=== PATIENT | male | born 1980 | race Caucasian/White ===

== ENCOUNTER 2022-04-01 11:44 | Observation (INO) ==
[2022-04-01] MEDS ORDERED: SODIUM CHLORIDE 0.9% 1000ML 1,000 ML IV ONE (13:14)
--- NOTE | 2022-04-01 13:21 | Emergency Department Note ---
Impression & Plan Syncope and collapse, Exertional chest pain, CRUZ (dyspnea on exertion), Abnormal cardiovascular stress test, COVID-19 ED Provider Note Name: ANN MAZARIEGOS Age: 41 Sex: M Arrives Via: Ambulance Informant: Patient, , chart ED Provider: Manuel Shah MD Chief Complaint: Syncope Impression: As Per Impressions Above Medical Decision Makin yr old male without significant PMH though likely chronic HTN arrives from Cardiology office after syncopal event while there. Does sound somewhat vagal in nature given they were talking about having cath done. However, patient just recently failed a stress test and given syncope further monitoring in hospital very much seems reasonable. Patient did have CT head which is negative. Dimer is wnl and thus CTA not indicated for PE and symptoms not consistent with dissection. No neuro deficits to suspect stroke at this time. Neuro intact. Covid is positive though no clear covid symptoms other than his feeling tired/sob for time, but he was just in large gathering so possibly early. He is not septic and is not having any active chest pain at this time. Hospitalist consulted for further management. Prior Medical Record and Triage/Nursing Notes reviewed by Me Differentials:Vasovagal event, dehydration, infection, hypoglycemia, electrolyte abnormalities, cardiac sources, intracerebral event, pulmonary embolism, seizure, toxicologic, neurologic, as well as other pathologies. Vital Signs: reviewed and remarkable for HTN Interventions: NSS bolus Labs:Reviewed and remarkable for no significant abnormalities Imaging:ct head no acute findings. cxr no acute findings. As per Rads EKG:Per My Interpretation: Indication syncope: SB 58 bpm, qtc 439. No Ectopy. No Ischemia. Compared to EKG 12/10/17, no significant changes. Cardiac/Tele Monitoring: Cardiac Monitoring: An Order was placed for continuous cardiac monitoring. The monitor shows a rate of 60 with a normal sinus rhythm. Consults:Dr Bhatt Plan: Disposition:Hospitalization. Condition: Good History of Present Illness:41-year-old gentleman arrives for evaluation of syncope. Patient notes that he has been dealing with shortness of breath over the last few months. Is worse with exertion. He states it is gradually been worsening as well. Over the last few weeks he gets to the point where he is having tight chest pain. He had a stress test done a few weeks ago which apparently he did not reach his target heart rate. He was being seen by cardiology today. They are discussing possibly doing a stress test with echo versus cardiac catheterization. Patient notes he started getting lightheaded nauseous apparently threw up and then passed out. He was unconscious for about a minute. When he came to he was sweaty and confused but rapidly returned to his he was sent to the ER for further evaluation. No medications prior to a rrival. Patient notes that when he does have the shortness of breath episodes if he sits down he feels better. Any exertion does make it worse. He is on no daily medications. He has no history of PE or DVT and denies any calf or leg swelling. No family history of DVT PE. ROS: See above HPI for pertinent positives & negatives. A total of 10 systems reviewed and were otherwise negative. Past Medical History:none Past Surgical History:appendix Family History:htn Social History:no smoking, no drugs, occasional etoh, , works for [employer]. Home Medications:none Allergies:sulfa Vitals:Blood Pressure: 170/97, Pulse 67, RR 20, T 36.4C, O2 95% on RA Physical Exam: GENERAL: Patient is uncomfortable appearing and in mild distress. EYES: No scleral icterus, unremarkable pupils. ENT: Mucous membranes dry, no nasal congestion. NECK: No masses appreciated, nomeningismus, trachea is midline. RESPIRATORY: No dyspnea. Clear to auscultation and equal bilaterally. No wheeze, no rhonchi. CARDIOVASCULAR: Regular rate and rhythm.No murmurs, rubs, gallops appreciated. GASTROINTESTINAL: Abdomen soft, non-tender, no peritonitis.Bowel sounds positive.No masses appreciated. BACK: No midline tenderness, no CVA tenderness EXTREMITIES: Normal motion all extremities, no cyanosis, no edema. NEUROLOGIC: Alert and oriented, no acute motor or sensory deficits, no focal weakness, cranial nerves grossly intact. SKIN: No rash, no jaundice, no diaphoresis. PSYCH: Appropriate GCS: 15 ED Course: Times/Reassessments: stable, no distress, agreeable to hospitalization Manuel Shah MD Past Med/Surg History Medical History (Updated 04/02/22 @ 17:35 by Byron Zheng DO) Abnormal cardiovascular stress test COVID-19 Surgical History (Updated 04/01/22 @ 14:51 by Brittany Aranda PA-C) No significant past surgical history Family History (Updated 04/01/22 @ 14:28 by Brittany Aranda PA-C) Grandfather (Maternal) Coronary heart disease Grandfather (Paternal) Coronary heart disease Social History Smoking Status: Never smoker Hx Substance Use: No Preferred Language: Zimbabwean Communication Ability: Effective Sewer Required: No Beliefs That Will Affect Care: None Current Living Situation: Family Feels Safe at Home: Yes Assistive Devices: None Allergies Allergies Allergy/AdvReac Type Severity Reaction Status Date / Time Sulfa (Sulfonamide Allergy Unknown UNKNOWN Verified 04/01/22 10:48 Antibiotics) Home Meds Home Medications Medication Instructions Recorded Confirmed acetaminophen 500 mg tablet 100 mg PO Q6H PRN Fever Or Pain 04/01/22 04/01/22 (Tylenol Extra Strength) benzonatate 100 mg capsule 100 mg PO TID PRN Cough 04/01/22 04/01/22 fluticasone propionate 50 1 spray intranasal BID PRN Nasal 04/01/22 04/01/22 mcg/actuation nasal Congestion spray,suspension Previous Rx's Medication Instructions Recorded amlodipine 5 mg tablet (Norvasc) 5 mg PO QAM #30 tabs 04/02/22 aspirin 81 mg tablet,delayed 81 mg PO QAM #30 tabs 04/02/22 release atorvastatin 40 mg tablet 40 mg PO QAM #30 tabs 04/02/22 nitroglycerin 0.4 mg sublingual 0.4 mg sublingual Q5M PRN chest 04/02/22 tablet pain #30 tabs Results & Data (ED) Vital Signs Vital Signs - 24 hr 04/01/22 11:49 04/01/22 12:04 Temperature 36.4 C L Temperature Source Oral Pulse Rate 67 Respiratory Rate 20 Respiratory Effort / Characteristics Non-Labored Respiratory Depth Normal Blood Pressure 170/97 H Blood Pressure Mean 121 Pulse Oximetry 95 Oxygen Delivery Method Room Air Room Air Sepsis Recent Fever Within 48 Hours No Sepsis New/Unexplained Change in Mental Status No Sepsis Action Taken by Nursing No Action Required Laboratory Data Result diagrams: 04/01/22 12:03 04/01/22 12:03 Lab Results 04/01/22 04/01/22 04/01/22 Range/Units 12:03 12:03 12:03 WBC 6.30 (4.8-10.8) K/ul RBC 5.27 (4.63-6.08) M/uL Hgb 16.4 (14.0-18.0) g/dl Hct 45.6 (40.1-51.0) % MCV 86.5 (80.0-100.0) fL MCH 31.1 (25.0-34.0) pg MCHC 36.0 (32.0-36.0) g/dL RDW Std Deviation 37.5 (36.4-46.3) fL RDW Coeff of Rigoberto 11.9 (11.5-14.5) % Plt Count 242 (130-400) K/uL MPV 9.5 (9.4-12.4) fL Immature Gran % (Auto) 1.0 % Neut % (Auto) 48.5 % Lymph % (Auto) 40.6 % [place] % (Auto) 6.7 % Eos % (Auto) 2.7 % Baso % (Auto) 0.5 % Neut # (Auto) 3.06 (1.4-6.5) K/uL Lymph # (Auto) 2.56 (1.2-3.4) K/uL [place] # (Auto) 0.42 (0.24-0.82) K/uL Eos # (Auto) 0.17 (0-0.50) K/uL Baso # (Auto) 0.03 (0-0.2) K/uL Immature Gran # (Auto) 0.06 H (0.00-0.02) K/uL PT 11.3 (9.0-12.0) Seconds INR 1.1 (0.9-1.1) D-Dimer 280 (0-500) ug/L FEU Sodium 140 (136-145) mmol/L Potassium 3.8 (3.5-5.1) mmol/L Chloride 105 (98-107) mmol/L Carbon Dioxide 29 (21-32) mmol/L Anion Gap 6 (3-11) BUN 21 (6-23) mg/dl Creatinine 0.99 (0.6-1.4) mg/dl Est Cr Clr Drug Dosing Not Reportable Est GFR ( Amer) 110.0 ml/min Est GFR (Non-Af Amer) 94.9 ml/min BUN/Creatinine Ratio 21.2 H (10-20) Glucose 112 H (70-99(Fasting)) mg/dl Calcium 9.5 (8.5-10.1) mg/dl Magnesium 2.2 (1.7-2.4) mg/dl Total Bilirubin 2.3 H (0.2-1.0) mg/dl Direct Bilirubin 0.2 (0-0.2) mg/dl AST 18 (13-39) U/L ALT 32 (7-52) U/L Alkaline Phosphatase 92 (34-104) U/L Troponin I High Sens 2.6 (0-20) pg/ml Total Protein 7.5 (6.0-8.3) gm/dl Albumin 4.6 (3.4-5.0) gm/dl Lipase 19 (11-82) U/L SARS-CoV-2, RNA, NAAT (NEGATIVE) 04/01/22 Range/Units 13:29 WBC (4.8-10.8) K/ul RBC (4.63-6.08) M/uL Hgb (14.0-18.0) g/dl Hct (40.1-51.0) % MCV (80.0-100.0) fL MCH (25.0-34.0) pg MCHC (32.0-36.0) g/dL RDW Std Deviation (36.4-46.3) fL RDW Coeff of Rigoberto (11.5-14.5) % Plt Count (130-400) K/uL MPV (9.4-12.4) fL Immature Gran % (Auto) % Neut % (Auto) % Lymph % (Auto) % [place] % (Auto) % Eos % (Auto) % Baso % (Auto) % Neut # (Auto) (1.4-6.5) K/uL Lymph # (Auto) (1.2-3.4) K/uL [place] # (Auto) (0.24-0.82) K/uL Eos # (Auto) (0-0.50) K/uL Baso # (Auto) (0-0.2) K/uL Immature Gran # (Auto) (0.00-0.02) K/uL PT (9.0-12.0) Seconds INR (0.9-1.1) D-Dimer (0-500) ug/L FEU Sodium (136-145) mmol/L Potassium (3.5-5.1) mmol/L Chloride (98-107) mmol/L Carbon Dioxide (21-32) mmol/L Anion Gap (3-11) BUN (6-23) mg/dl Creatinine (0.6-1.4) mg/dl Est Cr Clr Drug Dosing Est GFR ( Amer) ml/min Est GFR (Non-Af Amer) ml/min BUN/Creatinine Ratio (10-20) Glucose (70-99(Fasting)) mg/dl Calcium (8.5-10.1) mg/dl Magnesium (1.7-2.4) mg/dl Total Bilirubin (0.2-1.0) mg/dl Direct Bilirubin (0-0.2) mg/dl AST (13-39) U/L ALT (7-52) U/L Alkaline Phosphatase (34-104) U/L Troponin I High Sens (0-20) pg/ml Total Protein (6.0-8.3) gm/dl Albumin (3.4-5.0) gm/dl Lipase (11-82) U/L SARS-CoV-2, RNA, NAAT POSITIVE A* (NEGATIVE) Administered Medications Discontinued Medications Atropine Sulfate (Atropine Sulfate 0.1 Mg/Ml 10ml Syr) Confirm Administered Dose 1 mg IV .STK-MED ONE Stop: 04/02/22 11:50 Last Admin: 04/02/22 18:30 Dose: Not Given Documented By: ANGEL Fentanyl Citrate (Fentanyl Citrate 100 Mcg/2 Ml Vial) Confirm Administered Dose 100 mcg .ROUTE .STK-MED ONE Stop: 04/02/22 11:10 Last Increment: 04/02/22 12:00 Dose: 75 mcg Documented By: SARI Heparin Sodium (Porcine) (Heparin (Porcine) 1000 Unit/Ml 10 Ml (Chief Resource Officer Use Only)) Confirm Administered Dose 10,000 units .ROUTE .STK-MED ONE Stop: 04/02/22 11:10 Last Admin: 04/02/22 12:28 Dose: 5,000 units Documented By: SARI Heparin Sodium/Sodium Chloride (Heparin In Nss Infusion 1000 Unit/500 Ml (2 U/Ml) Bag) Confirm Administered Dose 3,000 units IV .STK-MED ONE Stop: 04/02/22 11:10 Last Admin: 04/02/22 12:29 Dose: 3,000 units Documented By: FREDIS Sodium Chloride (Nss 1000ml) 1,000 mls @ 999 mls/hr IV .Q1H1M ONE Stop: 04/01/22 14:14 Last Infusion: 04/01/22 14:40 Dose: 0 mls/hr Documented By: Admin: 04/01/22 13:30 Dose: 999 mls/hr Documented By: ANTONIO Sodium Chloride (Nss 1000ml) 1,000 mls @ 100 mls/hr IV .Q10H DIOGENES Stop: 04/02/22 17:44 Last Infusion: 04/02/22 17:45 Dose: 0 mls/hr Documented By: Admin: 04/02/22 12:45 Dose: 100 mls/hr Documented By: ANGEL Midazolam HCl (Midazolam Hcl 1 Mg/Ml 2ml Vial) Confirm Administered Dose 2 mg .ROUTE .STK-MED ONE Stop: 04/02/22 11:10 Last Admin: 04/02/22 12:00 Dose: 2 mg Documented By: FRAN Nicardipine HCl (Nicardipine Hcl Inj 2.5 Mg/Ml 10 Ml Amp) Confirm Administered Dose 25 mg .ROUTE .STK-MED ONE Stop: 04/02/22 11:10 Last Admin: 04/02/22 12:29 Dose: 25 mg Documented By: FREDIS Nitroglycerin/Dextrose (Nitroglycerin/D5w 100mcg/Ml 20ml Syr) Confirm Administered Dose 2,000 mcg .ROUTE .STK-MED ONE Stop: 04/02/22 11:11 Last Admin: 04/02/22 12:30 Dose: 2,000 mcg Documented By: FREDIS Imaging Data Radiologist's Impression: Chest X-Ray 04/01/22 13:15 XR chest 1V portable HISTORY: syncope COMPARISON: Chest 12/10/2017. FINDINGS: The lungs are clear. Cardiac silhouette is normal in size. No pleural effusions. No pneumothorax. IMPRESSION: No acute process. ACT 112: Negative or not required by law. Electronically signed by: Howard Jacobo M.D. 04/01/2022 1:42 PM Discharge Plan Visit Data Chief Complaint: Syncope Stated Complaint: SYNCOPE ED Provider: Manuel Shah Discharge Problem: Syncope and collapse, Exertional chest pain, CRUZ (dyspnea on exertion), Abnormal cardiovascular stress test, COVID-19 Patient Disposition: Admitted As Inpatient Discharge Instructions Interventions: ED Discharge Assessment Last Done: 04/01/22 16:55
[2022-04-01 13:37] LABS: Basophils # (auto) 0.03 K/uL (0-0.2); Basophils % (auto) 0.5 %; Eosinophils # (auto) 0.17 K/uL (0-0.50); Eosinophils % (auto) 2.7 %; Hematocrit (blood only) 45.6 % (40.1-51.0); Hemoglobin 16.4 g/dl (14.0-18.0); Immature Granulocytes # (auto) 0.06 K/uL (0.00-0.02); Lymphocytes # (auto) 2.56 K/uL (1.2-3.4); Lymphocytes % (auto) 40.6 %; Mean Corpuscular Hemoglobin 31.1 pg (25.0-34.0); Mean Corpuscular Volume 86.5 fL (80.0-100.0); Mean Platelet Volume 9.5 fL (9.4-12.4); Monocytes # (auto) 0.42 K/uL (0.24-0.82); Monocytes % (auto) 6.7 %; Neutrophils # (auto) 3.06 K/uL (1.4-6.5); Neutrophils % (auto) 48.5 %; Platelet Count 242 K/uL (130-400); RDW Coefficient of Variation 11.9 % (11.5-14.5); RDW Standard Deviation 37.5 fL (36.4-46.3); Red Blood Count 5.27 M/uL (4.63-6.08)
--- NOTE | 2022-04-01 13:43 | XRay Report ---
XR chest 1V portable HISTORY: syncope COMPARISON: Chest 12/10/2017. FINDINGS: The lungs are clear. Cardiac silhouette is normal in size. No pleural effusions. No pneumot horax. IMPRESSION: No acute process. ACT 112: Negative or not required by law. Electronically signed by: Howard Jacobo M.D. 04/01/2022 1:42 PM
[2022-04-01 13:44] LABS: D Dimer 280 ug/L FEU (0-500); INR 1.1 (0.9-1.1); Prothrombin Time 11.3 Seconds (9.0-12.0)
[2022-04-01 13:53] LABS: Troponin I High Sensitivity 2.6 pg/ml (0-20)
[2022-04-01 13:54] LABS: Alanine Aminotransferase 32 U/L (7-52); Albumin Level 4.6 gm/dl (3.4-5.0); Alkaline Phosphatase 92 U/L (34-104); Anion Gap 6 (3-11); Aspartate Aminotransferase 18 U/L (13-39); BUN Creatinine Ratio 21.2 (10-20); Bilirubin Direct 0.2 mg/dl (0-0.2); Bilirubin,Total 2.3 mg/dl (0.2-1.0); Blood Urea Nitrogen 21 mg/dl (6-23); Calcium 9.5 mg/dl (8.5-10.1); Carbon Dioxide 29 mmol/L (21-32); Chloride 105 mmol/L (98-107); Est GFR (Non-African American) 94.9 ml/min; Glucose 112 mg/dl (70-99(Fasting)); Lipase 19 U/L (11-82); Magnesium 2.2 mg/dl (1.7-2.4); Potassium 3.8 mmol/L (3.5-5.1); Sodium 140 mmol/L (136-145); Total Protein 7.5 gm/dl (6.0-8.3)
--- NOTE | 2022-04-01 14:15 | History & Physical Report ---
Date of Service April 01, 2022 Assessment & Plan (1) Syncope and collapse: Plan: - Most likely etiology is vasovagal response as patient has a well-known history of syncopal episodes secondary to medical procedures and hospitals. Today's event happened while discussing cardiac catheterization, and patient regained consciousness within several seconds and pressure and heart rate normalized quickly. The event was not proceeded by chest pain/tightness, back/jaw/arm pain, or dyspnea. - Initial labs and imaging in ED are reassuring there is no acute coronary event, as his troponin is 2.6, EKG with mild bradycardia, otherwise NSR. Vital signs WNL. - We will trend the troponin, order an echo, and consult cardiology for possible cardiac catheter patient tomorrow. (2) COVID-19: Plan: - Patient has received vaccine series. He has been asymptomatic. Unknown contact source. No known exposures or sick contacts at home. - As his SpO2 > 92% on RA, he is not a candidate for remdesivir or steroids. - For now, supportive care. (3) Total bilirubin, elevated: Plan: - 2.3, remaining LFTs wnl, was previously elevated to this degree in 2018. - ? history fo Gilbert's disease. Plan - OBS on med/tele. - SCDs for VTE ppx. - Full Code. History of Present Illness Chief Complaint: syncope and collapse at cardiology appt today Primary Care Provider: Wesley Mcadams is a 41-year-old previously healthy male who presented to the ED today after syncopal event in his cardiology appointment. He has been experiencing exertional chest tightness and SOB for several months. He did have a cardiac stress test performed last month for this, which demonstrated good exercise tolerance, however he had difficulty achieving target heart rate and EKG did show changes suggestive of ischemia. He was at a cardiology appt today to disuss next steps. While discussing possible cardiac catheterization, he became pale, diaphoretic, and had a very weak pulse and ultimately passed out and vomited. After several seconds he regained consciousness. He is now without any complaints, is chest pain free and breathing comfortably without dyspnea. Without headache or pain at all. He has a history of vasovagal events surrounding medical procedures hospitals. On routine admission testing, patient tested positive for COVID-19. He has had his vaccinations. He denies any sick contacts. He has not felt that he has any symptoms. Allergies Allergy/AdvReac Type Severity Reaction Status Date / Time Sulfa (Sulfonamide Allergy Unknown UNKNOWN Verified 04/01/22 10:48 Antibiotics) Home Medications Medication Instructions Recorded Confirmed Type Acetaminophen (Tylenol) 1,000 mg PO Q6 PRN Pain #0 tabs 12/10/17 04/01/22 History Past Med/Surg History Medical History (Updated 04/01/22 @ 14:27 by Brittany Aranda PA-C) Abnormal cardiovascular stress test COVID-19 Surgical History (Updated 04/01/22 @ 14:51 by Brittany Aranda PA-C) No significant past surgical history Family History (Updated 04/01/22 @ 14:28 by Brittany Aranda PA-C) Grandfather (Maternal) Coronary heart disease Grandfather (Paternal) Coronary heart disease Social History Smoking Status: Never smoker Preferred Language: Syriac Feels Safe at Home: Yes Review of Systems Review of Systems: Constitutional: No fever/chills, weakness, fatigue, myalgias, anorexia, night sweats Eyes: No diplopia, no worsening or blurred vision ENT: normal hearing, no trouble swallowing Respiratory: No cough, sputum, dyspnea at rest or on exertion Cardiovascular: No chest pain, tightness or palpitations Abdomen: No pain, nausea, vomiting, diarrhea or constipation : Denies dysuria, hematuria, increased urgency/frequency, urinary retention Musculoskeletal: No joint pain, calf pain, swelling Neurologic: No weakness, numbness/tingling, or balance problems Psychiatric: No anxiety or depression Skin: No rash or itch Physical Exam Physical Exam: General: awake, alert, no apparent distress Head: Normocephalic, atraumatic ENT: PERRL, EOMI, no pharyngeal exudate, mucous membranes moist Chest: Clear to auscultation, on room air, no adventitious breath sounds Cardiac: Regular rate and rhythm, no murmur, no JVD, normal peripheral pulses, good capillary refill Abdominal: NABS x 4 quadrants, soft, nontender to palpation, no rebound, guarding or tenderness Extremities: Normal inspection, no peripheral edema or erythema, calfs nontender to palpation Psych: Normal mood and affect Neuro: AAO x 3, strength intact bilaterally and rated 5/5, no motor deficits, speech is clear, no peripheral sensory deficits Skin: no rash or erythema Results & Data Results & Data ([facility]) Vital Signs (Past 12 Hours) Vital Signs Temp Pulse Resp BP Pulse Ox O2 Del Method 04/01/22 12:04 Room Air 04/01/22 11:49 36.4 C L 67 20 170/97 H 95 Room Air Laboratory Results Abnormal lab results 04/01/22 04/01/22 04/01/22 Range/Units 12:03 12:03 13:29 Immature Gran # (Auto) 0.06 H (0.00-0.02) K/uL BUN/Creatinine Ratio 21.2 H (10-20) Glucose 112 H (70-99(Fasting)) mg/dl Total Bilirubin 2.3 H (0.2-1.0) mg/dl SARS-CoV-2, RNA, NAAT POSITIVE A* (NEGATIVE) Diagnostic Findings Chest X-Ray 04/01/22 13:15 XR chest 1V portable HISTORY: syncope COMPARISON: Chest 12/10/2017. FINDINGS: The lungs are clear. Cardiac silhouette is normal in size. No pleural effusions. No pneumothorax. IMPRESSION: No acute process. ACT 112: Negative or not required by law. Electronically signed by: Howard Jacobo M.D. 04/01/2022 1:42 PM ECG Additional Comments: Sinus bradycardia Otherwise normal ECG When compared with ECG of 10-DEC-2017 16:00, No significant change was found. Code Status & VTE Plan Code Status Full Code. Supervising Physician Co-Signing Physician Notes Patient was seen and examined independently I discussed the case with Brittany MENDOZA I reviewed pertinent past medical social family history and also the plan of care and agree with the plan of care. Patient was in outpatient cardiology office discussing abnormal stress test when he had a vasovagal episode. Patient is known history of vasovagal issues with stressful events and needles. Patient was seen in the ER he is recovered completely however because of his severe phobia will be observed in our facility and have a cardiac catheterization on 04/02/2022. Incidentally is noted be COVID-positive. Reportedly had symptoms which started on March 23 Emergency Department he is no distress his COVID symptoms have resolved he had no loss of taste or smell or diarrhea he does mostly have coryza. 'Patient's cardiac exam is regular lungs are clear abdomen is NABS and extremity without edema Patient is brought into our facility observe for arrhythmias and will likely have a risk stratification cardiac catheterization on 04/02/2022 Any exceptions will be noted below PG Care Time/CCT Total # of Minutes Spent Total Time Spent with Patient: Total time spent is greater than 50% in coordination of care (as documented) at patient's floor/unit and/or counseling patient: Coding Level of Care Code INT OBSERVATION CARE 70M LVL 3 Diagnoses Syncope and collapse R55 COVID-19 U07.1 Total bilirubin, elevated R17
--- NOTE | 2022-04-01 14:44 | CT Scan Report ---
CT head/brain wo con CLINICAL HISTORY: 41 years-old Male with syncope. Acute syncope TECHNIQUE: Multiple axial CT images of the head were obtained without contrast. A dose lowering tech nique was utilized adhering to the principles of ALARA. CT DOSE: 638.56 mGycm COMPARISON: 12/10/2017 FINDINGS: No acute intracranial hemorrhage, midline shift, intracranial mass, hydrocephalus, territorial ischem ia or abnormal extra-axial collection. The calvarium is intact. Mild mucosal thickening of the ethmoid air cells. IMPRESSION: No acute intracranial abnormality or calvarial fracture. ACT 112: Negative or not required by law. The above report was generated using voice recognition software. It may contain grammatical, syntax o r spelling errors. Electronically signed by: Dallas Jane M.D. 04/01/2022 2:43 PM
--- NOTE | 2022-04-01 15:57 | Electrocardiogram Report ---
Test Reason : Blood Pressure : / mmHG Vent. Rate : 058 BPM Atrial Rate : 058 BPM P-R Int : 160 ms QRS Dur : 102 ms QT Int : 448 ms P-R-T Axes : 041 058 043 degrees QTc Int : 439 ms Sinus bradycardia Otherwise normal ECG When compared with ECG of 10-DEC-2017 16:00, No significant change was found Confirmed by Tyler Ivey ([id number]) on 04/01/2022 3:56:55 PM Referred By: Confirmed By:Tyler Ivey
[2022-04-01] MEDS ORDERED: ONDANSETRON INJ 2 MG/ML 2 ML VIAL IV PRN (16:55)
[2022-04-01] MEDS ORDERED: POLYETHYLENE (MIRALAX) 17 GM PACK PO PRN (16:55)
[2022-04-01] MEDS ORDERED: ACETAMINOPHEN 500 MG TAB PO PRN (17:02)
--- NOTE | 2022-04-02 10:08 | Cardiology Progress Note ---
Date of Service April 02, 2022 Assessment & Plan (1) Abnormal cardiovascular stress test: Plan: 2. Covid19 3. Exertional dyspnea 4. LVH 5. Mild mitral regurgitation Plan to proceed with cardiac catheterization later today, probably around 12- 1pm. If cath unremarkable OK for discharge later today when TR band off. Admission and Anticipated Discharge Date Admission Date: April 01, 2022 Subjective Feeling well. No chest pain overnight. Tele reviewed -- sinus rhythm. Review of Systems Review of Systems: All systems reviewed & are unremarkable except as noted in HPI & below Physical Exam Physical Exam: General: Comfortable HEENT: Sclerae anicteric Lungs: Clear to auscultation bilaterally Cardiac: Regular rate and rhythm, no murmurs. Vascular: 2+ radial Abdomen: Soft, nontender Extremities: Well perfused, no peripheral edema Neuro: Nonfocal Psych: Alert orient x3, normal affect and mood Results & Data ([facility]) Vital Signs (Past 12 Hours) Vital Signs Temp Pulse Pulse Resp BP Pulse Ox O2 Del Method 04/02/22 08:40 97.9 F 57 L 18 142/88 H 95 04/02/22 07:23 61 04/02/22 04:00 98.1 F 62 18 132/78 97 Room Air 04/01/22 22:09 65 04/01/22 22:06 71 PG Care Time/CCT Total # of Minutes Spent Total Time Spent with Patient: Total time spent is greater than 50% in coordination of care (as documented) at patient's floor/unit and/or counseling patient: Coding Level of Care Code 70150 Subseq Obs Care Lvl 2 Diagnoses Abnormal cardiovascular stress test R94.39
--- NOTE | 2022-04-02 10:31 | XCELERA ---
[id number]
[2022-04-02] MEDS ORDERED: MIDAZOLAM HCL 1 MG/ML 2ML VIAL ONE (11:09)
[2022-04-02] MEDS ORDERED: fentaNYL citrate 100 MCG/2 ML VIAL ONE (11:09)
[2022-04-02] MEDS ORDERED: HEPARIN (PORCINE) 1000 UNIT/ML 10 ML (CATH LAB USE ONLY) ONE (11:09)
[2022-04-02] MEDS ORDERED: niCARdipine HCL INJ 2.5 MG/ML 10 ML AMP ONE (11:09)
[2022-04-02] MEDS ORDERED: NITROGLYCERIN/D5W 100MCG/ML 20ML SYR ONE (11:10)
[2022-04-02] MEDS ORDERED: ATROPINE SULFATE 0.1 MG/ML 10ML SYR IV ONE (11:49)
--- NOTE | 2022-04-02 11:51 | Pre Anesthesia Assessment ---
Date of Service April 02, 2022 Pre Sedation Assessment Vital Signs Temp Pulse Pulse Resp BP BP BP 04/02/22 08:40 97.9 F 57 L 18 142/88 H 04/02/22 07:23 61 04/02/22 04:00 98.1 F 62 18 132/78 04/01/22 22:09 65 04/01/22 22:06 71 04/01/22 21:58 98.4 F 61 18 159/92 H 04/01/22 19:32 98.2 F 04/01/22 19:25 75 18 132/89 04/01/22 19:10 70 18 04/01/22 19:00 71 18 04/01/22 17:10 71 18 133/93 04/01/22 16:57 64 18 133/93 04/01/22 16:57 04/01/22 16:07 67 18 166/97 H 04/01/22 12:04 Pulse Ox Pulse Ox O2 Del Method O2 Del Method 04/02/22 08:40 95 04/02/22 07:23 04/02/22 04:00 97 Room Air 04/01/22 22:09 04/01/22 22:06 04/01/22 21:58 97 Room Air 04/01/22 19:32 04/01/22 19:25 96 04/01/22 19:10 95 04/01/22 19:00 96 04/01/22 17:10 97 Room Air 04/01/22 16:57 97 04/01/22 16:57 97 Room Air 04/01/22 16:07 97 Room Air 04/01/22 12:04 Room Air Cardiovascular RRR, no murmur, no edema Respiratory normal respiratory effort, lungs clear to auscultation Pre-Sedation Airway Assessment Smoking Status: Never smoker Hx Sleep Apnea: No Hx Difficult Intubation: No Short, Thick Neck: No Thyromental Distance: > or= 3.5 Finger Breadths Oral Cavity: + WNL Mallampati Class: III ASA: ASA3 Procedure Planning Contraindications for Sedation: none Current Medications Reviewed: Yes Notes The planned sedation has been discussed with the patient. Informed Consent was obtained. I have identified the patient, determined the appropriateness of sedation and have assessed the patient immediately prior to the procedure. All medicine(s) and interventions are by my order.
--- NOTE | 2022-04-02 12:16 | Post Anesthesia Assessment ---
Date of Service April 02, 2022 Post Sedation Assessment Vital Signs Temp Pulse Pulse Resp BP BP BP 04/02/22 08:40 97.9 F 57 L 18 142/88 H 04/02/22 07:23 61 04/02/22 04:00 98.1 F 62 18 132/78 04/01/22 22:09 65 04/01/22 22:06 71 04/01/22 21:58 98.4 F 61 18 159/92 H 04/01/22 19:32 98.2 F 04/01/22 19:25 75 18 132/89 04/01/22 19:10 70 18 04/01/22 19:00 71 18 04/01/22 17:10 71 18 133/93 04/01/22 16:57 64 18 133/93 04/01/22 16:57 04/01/22 16:07 67 18 166/97 H Pulse Ox Pulse Ox O2 Del Method O2 Del Method 04/02/22 08:40 95 04/02/22 07:23 04/02/22 04:00 97 Room Air 04/01/22 22:09 04/01/22 22:06 04/01/22 21:58 97 Room Air 04/01/22 19:32 04/01/22 19:25 96 04/01/22 19:10 95 04/01/22 19:00 96 04/01/22 17:10 97 Room Air 04/01/22 16:57 97 04/01/22 16:57 97 Room Air 04/01/22 16:07 97 Room Air Recovery Score Activity: Moves 4 extremities Respiration: Deep Breath/Cough Circulation: +/-20% PreAnes Value Consciousness: Fully Awake Oxygen Saturation: O2 needed for >90% Discharge Sedation Level of Care: Fast Track Phase II Post Sedation Plan On clinical assessment, the patient appears to have tolerated the sedation without complications. Patient is recovering as anticipated. Patient will continue to be monitored by nursing and may be discharged when sedation discharge criteria are met per below protocol. Upon Completions of procedure up to 15 minutes continue every 5 minute vital signs and the P.A.R. score; then discharge to a Phase I or Fast Track to Phase II per the following guidelines: * Discharge Patient to appropriate Phase II area if PAR is 8 or greater or return to pre- procedure baseline. The post - procedure orders will be as directed. * If PAR score is less than 8 or not return to pre-procedure baseline then patient will follow Phase I monitoring till PAR is reached for Phase II. The Phase I may be done in procedure room or may call to secure a Phase I area. * If naloxone or flumazenil are used for reversal, hold in Phase I for continued monitoring from when last reversal dose was given for a minimum of 60 minutes or longer pending the nurse and/or physician discretion of patient condition before discharge to Phase II. Please call the Sedation Physician to re-evaluate and complete post-note for discharge to Phase II area. Do NOT discharge from procedure sedation or Phase 1 until post- sedation evaluation note is complete by procedure /sedation MD Sedation Discharge Instructions to be given to the patient at discharge to home.
--- NOTE | 2022-04-02 12:36 | Cardiac Catheterization ---
[facility] Data: Motion Picture Narrator Cardiac Status Clinical evaluation leading to the procedure CAD Presenation: Positive Stress Test Anginal Classification: CCS II Diagnostic Physicians Name: Ryan Donald MD Closure Device Recommendations: Medical Therapy and/or Counseling Cardiac Cath Procedure Full Procedure Date April 02, 2022 Pre-Procedure Diagnosis Pre-Procedure Diagnosis: Positive Stress Test AUC Score AUC Score: 7 Post-Procedure Diagnosis Post-Procedure Diagnosis: Severe CAD and Normal Intracardiac Pressures Procedure(s) Performed Procedure(s) Performed: Coronary Angiography and Left Heart Cath [employer] Ryan Donald MD Electric Furnace Operator(s) Vasiliyibler Estimated Blood Loss Estimated Blood Loss: 5 Medication(s) Medication(s): Fentanyl, Heparin, Lidocaine 1%, Nicardipine, Nitroglycerin and Versed Summary of Findings Indication: Abnormal stress test Access: 6 Fr right radial artery Catheters: [place] Findings: LM -normal caliber, no significant disease LAD -large caliber, midsegment luminal irregularities, distal vessel without significant disease and wraps around apex. Medium D2 with 70 to 80% ostial stenosis Circumflex -medium caliber, distal luminal regularities. Medium OM1, left PLB without significant disease. RCA -dominant, large caliber, distal luminal irregularities LVEDP -18 Arterial Closure: TR band Summary: 1. No significant major epicardial coronary artery disease 2. Severe branch vessel [id number]% ostial second diagonal 3. Borderline intracardiac filling pressure (LVEDP 18) Recommendations: Recommend medical management of ostial diagonal disease. Start antianginal therapy and ASCVD risk factor modification. If refractory anginal symptoms in the future PCI of ostial diagonal could be considered. Follow-up with Dr. Hummel. Hemodynamics Rest Ao:: 141/93/114 Final Ao: 139/95/114 LV: 128/18 Recommendations Recommendations: Medical Therapy and/or Counseling Specimens Specimens: None Radiation Exposure (mGy) 865 Contrast (mls) 40 Anesthesia Moderate [id number] Procedural Complication(s) None Disposition Motion Picture Narrator Holding/Recovery I attest to the content of the Intraoperative Record and any orders documented therein. Any exceptions are noted below. [facility] Card Cath Procedure Codes Cardiac Catheterization Procedure 1: Cardiovascular Cath Procedures: 16071 Coronaries and LHC (+/-LV) Moderate Sedation Procedure 1: Sedation/Anesthesia: 13858 Mod Sedation by the same physician;Init15 Min Child Age 5 & Up PG Care Time/CCT Total # of Minutes Spent Total Time Spent with Patient: Total time spent is greater than 50% in coordination of care (as documented) at patient's floor/unit and/or counseling patient:
[2022-04-02] MEDS ORDERED: SODIUM CHLORIDE 0.9% 1000ML 1,000 ML IV SCH (12:45)
--- NOTE | 2022-04-02 17:38 | Discharge Summary ---
Date of Service April 02, 2022 Principal Diagnosis CRUZ due to CAD, LVH Discharge Exam gen aao [place] heent nc at mmm breathing unlabored no accessory muscles good effort skin no rashes no pallor or icterus neuro no focal deficits Discharge Data Allergies Allergy/AdvReac Type Severity Reaction Status Date / Time Sulfa (Sulfonamide Allergy Unknown UNKNOWN Verified 04/01/22 10:48 Antibiotics) Consultations 04/01/22 14:13 ED Decision to Admit Stat 04/01/22 16:55 Consult Cardiology Routine 04/02/22 16:56 Consult Cardiac Rehabilitation Routine Procedures Performed Operation Date: 04/02/22 12:00 Actual Procedures p Cineradiography w/Routine Exam - Eric Donald MD s Cath, Left with Cors and Vent - Eric Donald MD Ordered Studies 04/01/22 13:14 CT head/brain wo con Stat 04/02/22 11:40 CL Cath Imgs for PACS use only Routine Hospital Course (1) Coronary artery disease: med management - for now amlodipine, atorvastatin, aspirin lifestyle change discussed extensively see discharge instructions for summary of med/lifestyle discussions LHC done on 04/02/22: Findings: LM -normal caliber, no significant disease LAD -large caliber, midsegment luminal irregularities, distal vessel without significant disease and wraps around apex. Medium D2 with 70 to 80% ostial stenosis Circumflex -medium caliber, distal luminal regularities. Medium OM1, left PLB without significant disease. RCA -dominant, large caliber, distal luminal irregularities LVEDP -18 Arterial Closure: TR band Summary: 1. No significant major epicardial coronary artery disease 2. Severe single branch vessel % ostial second diagonal 3. Borderline intracardiac filling pressure (LVEDP 18) Recommendations: Recommend medical management of ostial diagonal disease. Start antianginal therapy and ASCVD risk factor modification. If refractory anginal symptoms in the future PCI of ostial LAD could be considered. Follow-up with Dr. Hummel. (2) LVH (left ventricular hypertrophy): med management, lifestyle change as above. cardiology felt this, too, may be contributory to CRUZ echo: normal LV size, mild concentric LVH; LVEF 65-7% no regional wall motion abnormalities; normal RV size and function, mild MR, normal est PASP (3) Syncope and collapse: - Most likely etiology is vasovagal response as patient has a well-known history of syncopal episodes secondary to medical procedures and hospitals. Today's event happened while discussing cardiac catheterization, and patient regained consciousness within several seconds and pressure and heart rate normalized quickly. The event was not proceeded by chest pain/tightness, back/jaw/arm pain, or dyspnea. (4) COVID-19: - Patient has received vaccine series. He has been asymptomatic. Unknown contact source. No known exposures or sick contacts at home. - As his SpO2 > 92% on RA, he is not a candidate for remdesivir or steroids. - appears essentially asymptomatic from this (5) Total bilirubin, elevated: - 2.3, remaining LFTs wnl, was previously elevated to this degree in 2018. - ? history fo Gilbert's disease. - outpt f/u Plan - OBS on med/tele. - SCDs for VTE ppx. - Full Code. Total Time Total Time Spent Total Time Spent (In Minutes): >30 Discharge Plan Discharge Items Patient Disposition: Home - Self-Care Reason For Visit: SYNCOPE AND COLLAPSE Discharge Diagnosis: shortness of breath - related to LVH and coronary disease (see below) Activity: Per Instructions section Non-emergency contact: Primary Care Provider and Steam Trap Man Call non-emergency contact if: you have any medication questions and your symptoms worsen Follow-up/Referrals: Wesley Wu [Primary Care Provider] - Diet: Heart Healthy Addtl Attending Provider Instructions: coronary artery disease -while fortunately you don't have a lot of blockages, or blockages in the major blood vessels, you did have a 75-80% blockage in the ostial second diagonal branch of your LAD (the LAD being one of the major vessels, the second diagonal being a smaller offshoot from it) -the way this could be contributing to your shortness of breath with exertion would be that when we have blockages, supply of blood flow is capped somewhat. if our exertion reaches a level where demand outstrips supply, we'll most typically get sensations like chest pressure/heaviness, but also can frequently get just an excessive feeling of shortness of breath -the (below outlined) measures for medication management and lifestyle change should at the very least stabilize the blockage -- but largely what we'll be going after would be to help you grow what's called collateral circulation - think of it as "grow your own bypass" -- where we can grow spindly little capillaries out around the blockages to get improved bloodflow downstream -as an aside, try to minimize using anti-inflammatories (there's some research that would show that the way they reduce blood vessels' ability to dilate, they can essentially accentuate the impact of blockages and make blood flow a bit worse); tylenol (acetaminophen) has a totally different mechanism than true anti-inflammatories (such as ibuprofen, naproxen, etc) and would be fine. LVH -the other potential reason you've been feeling short of breath with exertion would relate to what's called left ventricular hypertrophy - think of it as the left ventricle (the main pumping chamber in our heart) being a bit thicker or "muscle bound" -- this can lead to a bit of a bottleneck of filling with blood, so even though the heart pumps well, if it doesn't have the ability to fill "quite as full" then when we're asking for more blood flow (ie with exertion) we can't always keep up -the medication and lifestyle measures will also serve the goal of trying to prevent worsening (or show improvement in) the LVH as well medications: amlodipine -- a blood pressure medicine that acts essentially by relaxing the smooth muscle in the zuniga of blood vessels. this medicine will work to take strain off your left ventricle. if you think of each heartbeat as a "dumbell curl" medications like amlodipine can help "reduce the weight of the dumbell" - helping with the LVH. because it can also help prevent spasm in the smooth muscle of blood vessels, it may help functionally allow more blood flow around the blockage. the most common side effects we see with amlodipine are swelling in your feet, or lightheadedness/feeling faint when first standing up. if either happen and don't go away fairly quickly as your body gets used to the medicine, there are really several different ways we could treat the blood pressure portion of this / take strain off your heart - so while we're starting with the amlodipine, if it's causing problems, or if we need to add another medicine to get thing under better control (because the average blood pressure patient is actually on 3 different medicines) - just know that there are many ways we can go about this. atorvastatin - while we commonly think of statins as a medicine to reduce cholesterol to prevent blockages from growing, the main role they actually serve is to stabilize the blockages in the blood vessels. (the "final pathway" that usually leads to a heart attack is that the blockage is an inflamed fatty layer with a thin layer of skin above it. since the skin is thin, it can split - when it splits then our body reacts the same as if we cut our finger -- ie a clot forms. since statins -- particularly atorvastatin or rosuvastatin - act to prevent the blockage from splitting to begin with, their main role is really far more to stabilize the blockage that is already there, rather than to simply lower cholesterol). most people tolerate statins extremely well - while the main side effect we watch for is muscle aches, truthfully those are quite uncommon. (in my experience most people who note aches on medicines like this are far more often paying attention to aches they've already had for a while rather than getting new myalgias. when it happens, it most commonly is "feeling like you have the flu but you don't have the flu". Dr Wu will follow labs from time to time for the atorvastatin - we follow liver enzymes with these medicines, although again, much like the muscle aches, actual liver problems with these kind of medicines are really rare. aspirin - looking at the "one-two punch" of plaque rupturing and the a clot forming as the "final pathway" that leads to a heart attack, the statin reduces the chances of step one (plaque rupture) and the aspirin then reduces the impact of step two (clot formation). antiplatelet blood thinners like aspirin make the clot we form less dense and robust, so our body can sometimes even break them up if they form, and they're often easier to break up in the grass farm laborer if someone has to have a procedure for a heart attack. typically aspirin at 81mg daily is really well tolerated - you might notice a minor amount of increase bleeding when you cut yourself, or a small amount of increased bruising, but for most people it's rarely more than a nuisance. lifestyle: exercise: as we discussed, a viera to growing collateral circulation (ie growing blood vessels around the blockage), and a viera to remodeling your heart to reduce the LVH, will be working to get to 30 minutes of some kind of light cardiovascular exericse a day (getting your heart rate up, getting your breathing more rapid). we've made a referral to cardiac rehab so you can start this journey with guidance and supervision. ultimately you'll want to work some kind of non-stop movement for about a half hour a day into your daily routine. remember as you work on this - doing something is better than doing nothing / doing more is better than doing less -- but ideally gun for 30 minutes every day once you build up to it. 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 the bottom line on this kind of eating is making fruits and vegetables the mainstay, eating lean sources of protein (chicken without the skin, pork without the fat, fish, anything that you russo) and minimizing saturated (bad) fats - red meat, fatty cuts of meat, fried foods, snack food fats; as well as minimizing simple/starchy/sugary carbs. as a fellow [facility], the eating habits you outlined are pretty typical for our area/culture/local habits/etc -- but definitely leave a lot of room for improvement. as we discussed, if you and your decide to use this as a bit of a "reset button" and work to change habits moving forward, then you're likely to be healthier at 46 than you are at 41! take care of yourself! Pending Studies at Discharge: No Stand-Alone Forms: [facility], Smoking Cessation Medications and DC Order Prescriptions: New atorvastatin 40 mg Tablet 40 mg PO QAM Qty: 30 0RF aspirin 81 mg Tablet,Delayed Release (Dr/Ec) 81 mg PO QAM Qty: 30 0RF amlodipine [Norvasc] 5 mg Tablet 5 mg PO QAM Qty: 30 0RF nitroglycerin 0.4 mg tablet, sublingual 0.4 mg sublingual Q5M PRN (Reason: chest pain) Qty: 30 0RF Continued acetaminophen [Tylenol Extra Strength] 500 mg Tablet 100 mg PO Q6H PRN (Reason: Fever Or Pain) benzonatate 100 mg capsule 100 mg PO TID PRN (Reason: Cough) fluticasone propionate 50 mcg/actuation spray,suspension 1 spray INTRANASAL BID PRN (Reason: Nasal Congestion) Discontinued Advil Cold and Sinus 30-200 mg Capsule 1 cap PO DIRECTED PRN (Reason: .sinus congestion) Discharge Orders: Discharge Order (Routine); Ordered 04/02/22 Ordered By: Byron Zheng Admission Data Admit Date/Time: 04/01/22 14:23 Attending Provider: Byron Zheng Admit Provider: Dennis Bhatt Primary Care Provider: Wesley Wu Other Providers: Dennis Bhatt ; Marciano Hummel Coding Level of Care Code 09080 OBS Care - Discharge Diagnoses Coronary artery disease I25.10 LVH (left ventricular hypertrophy) I51.7 Syncope and collapse R55 COVID-19 U07.1 Total bilirubin, elevated R17
[2022-04-03] MEDS ORDERED: ATORVASTATIN 40 MG TAB PO SCH (09:00)
[2022-04-03] MEDS ORDERED: amLODIPine BESYLATE 5 MG TAB PO SCH (09:00)
[2022-04-03] MEDS ORDERED: ASPIRIN 81 MG ECTAB PO SCH (09:00)
--- NOTE | 2022-04-03 14:22 | Electrocardiogram Report ---
Test Reason : Blood Pressure : / mmHG Vent. Rate : 066 BPM Atrial Rate : 066 BPM P-R Int : 158 ms QRS Dur : 096 ms QT Int : 408 ms P-R-T Axes : 028 045 025 degrees QTc Int : 427 ms Normal sinus rhythm Normal ECG When compared with ECG of 01-APR-2022 12:26, No significant change was found Confirmed by Tyler Ivey ([id number]) on 04/03/2022 2:22:05 PM Referred By: REFERRED SELF Confirmed By:Tyler Ivey
== END 2022-04-02 18:30 | disposition home or self-care (01) ==
LOC: ED 11:44 → EDINP 11:44 → SUATTDRO 14:23 → 2W 16:55 → 2S 04-02 12:49
DX: R94.39 Abnormal result of other cardiovascular function study; I51.7 Cardiomegaly; U07.1 COVID-19; Z88.2 Allergy status to sulfonamides; R55 Syncope and collapse; I25.10 Atherosclerotic heart disease of native coronary artery without angina pectoris; Z79.899 Other long term (current) drug therapy